=== PATIENT | female | born 1970 | race Caucasian/White ===

== ENCOUNTER 2022-03-30 07:54 | Outpatient (CLI) | payer OTHER | END 2022-03-30 07:55 | disposition home or self-care (01) | LOC: CSHMAMMO 07:54 | PROVIDERS: ATTEND Family Medicine | DX: Z12.31 Encounter for screening mammogram for malignant neoplasm of breast (principal) | CPT/HCPCS: 77063; 77067 ==

== ENCOUNTER 2022-12-29 12:43 | Emergency (ER) | payer OTHER | END 2022-12-29 13:57 | disposition home or self-care (01) | LOC: CSHERS 12:43 | DX: R42 Dizziness and giddiness (principal); T50.905A Adverse effect of unspecified drugs, medicaments and biological substances, initial encounter | CPT/HCPCS: 99283 ==

== ENCOUNTER 2024-02-03 07:45 | Day surgery (SDC) | payer OTHER ==
[2024-02-02 08:44] VITALS: BMI 29.1
[2024-02-03] MEDS ORDERED: PROPOFOL 20 ML ONE ×2 (10:04→10:13)
[2024-02-03] MEDS ORDERED: fentaNYL 50 mcg/mL 1 mL Vial ONE (10:08)
== END 2024-02-03 12:05 | disposition home or self-care (01) ==
LOC: CSHSDC 07:45
PROVIDERS: ATTEND Internal Medicine Gastroenterology
PROC: 0DB68ZX Excision of Stomach, Via Natural or Artificial Opening Endoscopic, Diagnostic (ICD-10-PCS; principal; 2024-02-03)
PROC: 0D758ZZ Dilation of Esophagus, Via Natural or Artificial Opening Endoscopic (ICD-10-PCS; principal; 2024-02-03)
DX: K22.2 Esophageal obstruction (principal); K44.9 Diaphragmatic hernia without obstruction or gangrene; K29.70 Gastritis, unspecified, without bleeding; K25.9 Gastric ulcer, unspecified as acute or chronic, without hemorrhage or perforation; K21.9 Gastro-esophageal reflux disease without esophagitis; Z91.011 Allergy to milk products
CPT/HCPCS: 88305; J2704; J3010

== ENCOUNTER 2025-07-23 07:11 | Outpatient (CLI) | payer OTHER ==
[2025-07-23] MEDS ORDERED: Iopamidol 300 61% 100 ML VIAL FS ONE (14:07)
== END 2025-07-23 07:12 | disposition home or self-care (01) ==
LOC: CSHCT 07:11
PROVIDERS: ATTEND Family Medicine
DX: I72.9 Aneurysm of unspecified site (principal); G93.9 Disorder of brain, unspecified
CPT/HCPCS: 70496